=== PATIENT | female | born 1970 | race Caucasian/White ===

== ENCOUNTER 2021-10-08 06:53 | Day surgery (SDC) | payer MEDICAID ==
[2021-10-08] MEDS ORDERED: Depo-Medrol 40 MG/ML IM ONE (06:54)
[2021-10-08] MEDS ORDERED: LIDOCAINE HCL 2% 100 MG/5 ML IJ ONE (06:54)
[2021-10-08] MEDS ORDERED: DIPRIVAN 200 MG/20 ML IV ONE (09:38)
[2021-10-08] MEDS ORDERED: Lactated Ringers 1,000 ML IV ONE (09:53)
--- NOTE | 2021-10-08 10:41 | XRAY ---
Indication: Bilateral L4-S1 MBB. Intraoperative fluoroscopy provided for 14 seconds. Single digital spot image submitted for interpretation demonstrate posterior needle tips projecting over the expected left and right L4-S1 nerve roots. Correlate with intraoperative findings/report.
--- NOTE | 2021-10-08 12:23 | XRAY ---
14 seconds fluoroscopy time in surgery for bilateral L4-S1 MBB.
== END 2021-10-08 09:48 | disposition home or self-care (01) ==
LOC: SDC-PAIN 06:53
PROVIDERS: ATTEND Psychiatry & Neurology Pain Medicine
DX: M47.816 Spondylosis without myelopathy or radiculopathy, lumbar region (principal); E11.9 Type 2 diabetes mellitus without complications; Z79.899 Other long term (current) drug therapy
CPT/HCPCS: 64493; 64494; 72020; 77002; 82947; J1030; J2704

== ENCOUNTER 2021-11-03 07:54 | Day surgery (SDC) | payer MEDICAID ==
[2021-11-03] MEDS ORDERED: BUPIVACAINE 0.5% VIAL IJ ONE (07:55)
[2021-11-03] MEDS ORDERED: Depo-Medrol 40 MG/ML IM ONE (07:55)
[2021-11-03] MEDS ORDERED: DIPRIVAN 200 MG/20 ML IV ONE (09:35)
[2021-11-03] MEDS ORDERED: Lactated Ringers 1,000 ML IV ONE (10:24)
--- NOTE | 2021-11-03 10:48 | XRAY ---
Indication: Bilateral L4-S1 MBB. Intraoperative fluoroscopy provided for 17 seconds. Single digital spot image submitted for interpretation demonstrates posterior needle tips projecting over the expected left and right L4-S1 nerve roots. Correlate with intraoperative findings/report.
--- NOTE | 2021-11-03 12:24 | XRAY ---
17 seconds fluoroscopy time in surgery for bilateral L4-S1 MBB.
== END 2021-11-03 10:00 | disposition home or self-care (01) ==
LOC: SDC-PAIN 07:54
PROVIDERS: ATTEND Psychiatry & Neurology Pain Medicine
DX: M47.816 Spondylosis without myelopathy or radiculopathy, lumbar region (principal); E11.9 Type 2 diabetes mellitus without complications; Z79.899 Other long term (current) drug therapy
CPT/HCPCS: 64493; 64494; 72020; 77002; 82947; J1030; J2704

== ENCOUNTER 2022-01-05 06:45 | Day surgery (SDC) | payer MEDICAID ==
[2022-01-05] MEDS ORDERED: BUPIVACAINE 0.5% VIAL IJ ONE (06:46)
[2022-01-05] MEDS ORDERED: Depo-Medrol 40 MG/ML IM ONE (06:46)
[2022-01-05] MEDS ORDERED: DIPRIVAN 200 MG/20 ML IV ONE (08:38)
[2022-01-05] MEDS ORDERED: Lactated Ringers 1,000 ML IV ONE (09:28)
--- NOTE | 2022-01-05 09:46 | XRAY ---
16 seconds fluoroscopy time in surgery for injection of the right SI joint.
--- NOTE | 2022-01-05 09:47 | XRAY ---
Indication: Right SI joint injection. Intraoperative fluoroscopy provided for 16 seconds. 2 digital spot image submitted for interpretation demonstrates posterior needle tip projecting over the inferior right SI joint. Correlate with intraoperative findings/report.
== END 2022-01-05 09:03 | disposition home or self-care (01) ==
LOC: SDC-PAIN 06:45
PROVIDERS: ATTEND Psychiatry & Neurology Pain Medicine
DX: M46.1 Sacroiliitis, not elsewhere classified (principal); E11.9 Type 2 diabetes mellitus without complications; Z79.899 Other long term (current) drug therapy
CPT/HCPCS: 27096; 72020; 77002; 82947; J1030; J2704; G0260

== ENCOUNTER 2022-02-17 07:45 | Day surgery (SDC) | payer MEDICAID, OTHER ==
[2022-02-17] MEDS ORDERED: Depo-Medrol 40 MG/ML IM ONE (07:46)
[2022-02-17] MEDS ORDERED: BUPIVACAINE 0.5% VIAL IJ ONE (07:46)
[2022-02-17] MEDS ORDERED: Lactated Ringers 1,000 ML IV ONE (09:18)
--- NOTE | 2022-02-17 11:01 | XRAY ---
46 seconds of fluoroscopy was used in surgery for a right greater trochanteric bursa and intra-articular injection.
--- NOTE | 2022-02-17 11:01 | XRAY ---
Indication: Right hip and greater trochanter bursa injections. Intraoperative fluoroscopy provided for 46 seconds. 2 digital spot images submitted for interpretation demonstrate needle tip lateral to right femur neck and right greater trochanter. Small amount of contrast injected for both needle tip placement. Correlate with intraoperative findings/report.
== END 2022-02-17 10:10 | disposition home or self-care (01) ==
LOC: SDC-PAIN 07:45
PROVIDERS: ATTEND Psychiatry & Neurology Pain Medicine
DX: M16.11 Unilateral primary osteoarthritis, right hip (principal); M70.61 Trochanteric bursitis, right hip; E11.9 Type 2 diabetes mellitus without complications; Z79.899 Other long term (current) drug therapy
CPT/HCPCS: 20610; 73502; 77002; 82947; J1030; Q9966